=== PATIENT | female | born 1980 | race Caucasian/White ===

== ENCOUNTER 2020-12-22 13:57 | Emergency (ER) | payer OTHER ==
[~2020-12-22] VITALS: Ht 157.5 cm; Wt 91.6 kg
[~2020-12-22 13:57] MED LIST: HYDROCODON-ACE1 EA10 PO; IBUPROFEN600 MG PO; NORCO 5-325 TA1 EACH PO
[2020-12-22] MEDS ORDERED: NITROFURANTOIN100 M1 PO (14:13)
== END 2020-12-22 17:55 | disposition home or self-care (01) ==
LOC: ED 13:57
DX: R10.31 Right lower quadrant pain (principal); J45.909 Unspecified asthma, uncomplicated; Z88.8 Allergy status to other drugs, medicaments and biological substances; Z79.899 Other long term (current) drug therapy
CPT/HCPCS: 74176; 80053; 81001; 84703; 85025; 96374; 96375; 99284-25; J1170; J1885; J2405; J7030